=== PATIENT | female | born 1945 | race Caucasian/White ===

== ENCOUNTER → 2023-11-17 10:59 | Outpatient (REF) | payer MEDICARE, OTHER, SELFPAY | LOC: HWRCS 10:59 | PROVIDERS: ATTENDING PHYSICIAN Podiatrist Foot Surgery; FAMILY PHYSICIAN Family Medicine | DX: I35.0 Nonrheumatic aortic (valve) stenosis (principal) | CPT/HCPCS: 93306 ==

== ENCOUNTER → 2024-02-02 11:45 | Outpatient (REF) | payer MEDICARE, OTHER, SELFPAY | LOC: HWWDC 11:45 | PROVIDERS: ATTENDING PHYSICIAN Obstetrics & Gynecology; FAMILY PHYSICIAN Family Medicine | DX: Z12.31 Encounter for screening mammogram for malignant neoplasm of breast (principal) | CPT/HCPCS: 77063; 77067 ==

== ENCOUNTER 2024-05-19 04:09 | Emergency (ER) | payer MEDICARE, OTHER, SELFPAY ==
[2024-05-19 04:30] VITALS: BP 147/79
[2024-05-19 04:58] LABS: COVID-19 Antigen Positive (Negative)
[2024-05-19 08:05] VITALS: BP 144/110
--- NOTE | 2024-05-19 08:35 | ED.MUSCINJ ---
HPI-Injury
General
Chief Complaint: Musculo-Skeletal Complaint
Source: patient
Exam Limitations: none
Time Seen by Provider: 05/19/24 08:21
History of Present Illness-Injury
Initial Injury comments:
78-year-old female presents with significant left knee pain. She received a cortisone injection into her left knee earlier this week. She received a mild amount of relief from this but since then she has had significant pain along the medial knee.
She denies associated fever. At times the pain is made worse when she is there is still and better when she bears weight. No known injury. She does note a new onset cough as well and she states that her son recently tested positive for COVID.
Past History
Past History
ED Past Medical History: Hypercholesterolemia
ED Past Surgical History: Gynecological
Social History
Living: alone
Phy Exam
Physical Exam
Physical Exam:
General: Well-appearing female no acute respiratory distress
HEENT: Normocephalic atraumatic musculoskeletal exam: Left knee without effusion full extension flexion beyond 90 degrees she is tender along the medial knee
No overlying erythema
Extremities: No cyanosis
Injury Course
Orders/Labs/Results
Orders:
Orders
05/19/24 04:36
Knee, Left 4 or More Views [CR Knee - Left 4 Or More View*] Urgent
Comment:
Reason For Exam: pain
05/19/24 04:38
COVID-19 Antigen Urgent
Source: Nasal Swab
05/19/24 08:34
Hydrocodone 5/APAP 325 [[place] 5/325] 1 tablet PO NOW STA
Ketorolac [Toradol] 30 mg IM NOW STA
Abnormal Lab Results
05/19/24
04:38
SARS-CoV-2 Antigen Positive A
(Negative)
MDM/Problems Addressed
Differential Diagnosis Includes:
Left knee pain. Consider inflammatory sponsor recent cortisone injection. Low clinical concern for septic arthritis. X-rays of the left knee were obtained which show mild degenerative changes but no other acute finding.
Will give Toradol injection and treat with pain medicine for her knee discomfort. She is in no respiratory distress. She Test Positive for COVID Here. Recommended Supportive Care for This As Well
*Critical Care Note
Total Time (30-74mins, 75-104mins- exclusive of procedures): Not Applicable
ED Attending Note
-
Portions of this chart may have been created with voice recognition software.� Occasional wrong word or��sound alike� substitutions may have occurred due to the inherent limitations of voice recognition software.
Discharge Plan
Departure
Patient Disposition: Home (Routine Discharge)
Date of Disposition: 05/19/24
Time of Disposition: 09:37
Patient with high blood pressure during this ER visit?: No
Discharge Problem:
Acute knee pain
Instructions: Muscle and Bone Pain (DC)
Prescriptions:
New
hydrocodone-acetaminophen 5-325 mg tablet
1 tab PO Q8H PRN (Reason: Pain) Qty: 10 0RF
No Action
sertraline 100 MG tablet
100 mg PO HS
simvastatin 20 MG tablet
20 mg PO QPM
cholecalciferol (vitamin D3) 2,000 UNITS tablet
2,000 units PO HS
furosemide [Lasix] 40 MG tablet
40 mg PO DAILY Qty: 30 0RF
amlodipine 5 MG tablet
5 mg PO Q12H
azilsartan medoxomil [Edarbi] 40 MG tablet
40 mg PO DAILY
aspirin 81 MG tablet,chewable
81 mg PO DAILY 0RF
Referrals:
Jose Abrams DO [Family Provider] -
Activity Restrictions/Additional Instructions:
Normal continue with ibuprofen. Add prescribe pain medicine as needed for severe pain. Follow-up with orthopedics. Return if needed otherwise
Interventions
Interventions:
*Risk Screen - Suicide Last Done: 05/19/24 09:14
*General Assessment Last Done: 05/19/24 04:30
*Neglect/Abuse Screening Last Done: 05/19/24 04:30
*ED COVID-19 Vaccine History Last Done: 05/19/24 08:07
ED-Musculoskeletal Assessment Last Done: 05/19/24 08:06
Discharge Date and Time
Print Language: LAO
[2024-05-19] MEDS: NORCO 5/325 1 TABLET PO (08:44)
[2024-05-19] MEDS: TORADOL 30 MG IM (09:00)
== END 2024-05-19 09:51 | disposition home or self-care (01) ==
LOC: EMR 04:09
PROVIDERS: Emergency Medicine; EMERGENCY PHYSICIAN Emergency Medicine; FAMILY PHYSICIAN Family Medicine
DX: M25.562 Pain in left knee (principal); Z11.52 Encounter for screening for COVID-19
CPT/HCPCS: 99284; 96372; 73564; 87811

== ENCOUNTER → 2025-03-30 11:18 | Outpatient (REF) | payer MEDICARE, OTHER, SELFPAY | LOC: HWWDC 11:18 | PROVIDERS: ATTENDING PHYSICIAN Physician Assistant Medical | DX: Z12.31 Encounter for screening mammogram for malignant neoplasm of breast (principal) | CPT/HCPCS: 77063; 77067 ==